=== PATIENT | female | born 1975 | race Asian ===

== ENCOUNTER → 2023-09-17 13:22 | Outpatient (BNVA) | payer SELFPAY | PROVIDERS: Visit Provider Nurse Practitioner Family | DX: R60.0 Localized edema (principal); I87.2 Venous insufficiency (chronic) (peripheral) | CPT/HCPCS: 80053; 85025 ==

== ENCOUNTER → 2023-10-30 14:55 | Outpatient (BNVA) | payer SELFPAY | PROVIDERS: Visit Provider Family Medicine Adult Medicine | DX: E40 Kwashiorkor (principal); L26 Exfoliative dermatitis | CPT/HCPCS: 80053; 85025 ==

== ENCOUNTER 2023-12-30 06:47 | Outpatient (CLI) | payer MEDICAID, SELFPAY ==
--- NOTE | 2023-12-30 07:00 | US_ITS ---
WS: [id number] Complete ABDOMINAL ULTRASOUND HISTORY: abdomen fullness with bending COMPARISON: None available. Liver: 12.0 cm in length. Normal size liver and echogenicity. No bile duct dilatation or mass. Portal Vein: Normal hepatopetal flow with monophasic waveform. Gallbladder: Normally distended gallbladder with no stones or wall thickening. CBD: 0.3 cm Pancreas: Normal size and echogenicity. Right kidney: 9.2 cm x 4.5 x 3.7 cm. Cortex: 1.0 cm. Normal size and echogenicity. No hydronephrosis or mass. Left kidney: 9.7 cm x 4.5 cm x 4.3 cm. Cortex: 1.0 cm. Normal size and echogenicity. No hydronephrosis or mass. Spleen: 7.7 cm. Normal size and echogenicity. Aorta and IVC: Unremarkable abdominal aorta and IVC. US/US abdomen complete* [id number] Impression: Normal complete abdomen ultrasound.
== END 2023-12-30 06:48 | disposition home or self-care (01) ==
LOC: RAD 06:48
PROVIDERS: PCP Family Medicine Adult Medicine; Visit Provider Family Medicine Adult Medicine
DX: R19.00 Intra-abdominal and pelvic swelling, mass and lump, unspecified site (principal)
CPT/HCPCS: 76700

== ENCOUNTER → 2025-03-18 14:24 | Outpatient (BNVA) | payer OTHER, SELFPAY | PROVIDERS: PCP Family Medicine Adult Medicine; Visit Provider Obstetrics & Gynecology | DX: N93.9 Abnormal uterine and vaginal bleeding, unspecified (principal); Z87.42 Personal history of other diseases of the female genital tract; R30.0 Dysuria; Z01.419 Encounter for gynecological examination (general) (routine) without abnormal findings | CPT/HCPCS: 81000; 81025; 82728; 83036; 84146; 84443; 85025; 87624 ==

== ENCOUNTER 2025-03-26 13:40 | Outpatient (CLI) | payer SELFPAY | END 2025-03-26 13:41 | disposition home or self-care (01) | LOC: LAB 05-10 17:02 | PROVIDERS: PCP Family Medicine Adult Medicine; Visit Provider Obstetrics & Gynecology | DX: R79.89 Other specified abnormal findings of blood chemistry (principal) | CPT/HCPCS: 84439 ==